=== PATIENT | male | born 1940 | race Caucasian/White ===

== ENCOUNTER 2020-02-22 10:45 | Outpatient (CLI) | payer MEDICARE, SELFPAY ==
[2020-02-22 10:59] VITALS: BMI 43.0
[2020-02-22 11:30] LABS: Hematocrit 40.8 % (42.0-52.0); Hemoglobin 13.2 g/dL (14.1-18.0)
[2020-02-22 11:36] LABS: Potassium 4.2 mmoL/L (3.5-5.1)
[2020-02-22 11:39] LABS: Creatinine Clearance Estimated 23 mL/min (50-200); Estimated Glomerular Filt Rate 26 ml/min (>60); GFR (African American) 32 ML/MIN (>60); Iron 48 ug/dL (49-181)
[2020-02-22 11:48] LABS: Total Iron Binding Capacity 224 ug/dL (261-462)
[2020-02-22 12:17] LABS: Ferritin 32.2 ng/ml (17.9-464)
--- NOTE | 2020-02-22 14:29 | PC.NURSE ---
1120-DICKSON FROM LAB PRESENT TO DRAW H/H, CREA, K+, FERRITIN, IRON AND TIBC, AND IRON SAT. PT WILL RECEIVED PROCRIT IF HGB <10.
--- NOTE | 2020-02-22 14:39 | PC.NURSE ---
1150- HGB 13.2. NO PROCRIT INDICATED. PT SCHEDULED TO RETURN IN 1 MONTH FOR LABS AND PROCRIT IF NEEDED.
== END 2020-02-22 12:00 | disposition home or self-care (01) ==
LOC: INF 10:50
PROVIDERS: PCP Emergency Medicine; Visit Provider Student in an Organized Health Care Education/Training Program
DX: N18.4 Chronic kidney disease, stage 4 (severe) (principal); D63.1 Anemia in chronic kidney disease
CPT/HCPCS: 36415; 82565; 82728; 83540; 83550; 84132; 85014; 85018

== ENCOUNTER 2020-04-09 11:21 | Outpatient (CLI) | payer MEDICARE, SELFPAY ==
[2020-04-09 11:22] VITALS: BMI 35.2
[2020-04-09 11:53] LABS: Creatinine Clearance Estimated 37 mL/min (50-200); Estimated Glomerular Filt Rate 27 ml/min (>60); GFR (African American) 33 ML/MIN (>60); Iron 62 ug/dL (49-181)
[2020-04-09 12:02] LABS: Total Iron Binding Capacity 260 ug/dL (261-462)
[2020-04-09 12:19] LABS: Hematocrit 39.5 % (42.0-52.0); Hemoglobin 12.3 g/dL (14.1-18.0)
[2020-04-09 12:31] LABS: Ferritin 36.5 ng/ml (17.9-464)
--- NOTE | 2020-04-09 12:44 | PC.NURSE ---
BLOOD DRAWN BY DICKSON FROM LAB. HGB 12.3 THEREFORE NO PROCRIT WAS GIVEN AND PT SCHEDULED TO RETURN IN 1 MONTH TO RECHECK LABS AND GIVE PROCRIT IF INDICATED.
== END 2020-04-09 12:25 | disposition home or self-care (01) ==
LOC: INF 11:21
PROVIDERS: Visit Provider Internal Medicine Nephrology
DX: N18.4 Chronic kidney disease, stage 4 (severe) (principal); D63.1 Anemia in chronic kidney disease
CPT/HCPCS: 36415; 82565; 82728; 83540; 83550; 84132; 85014; 85018

== ENCOUNTER 2020-05-07 11:15 | Outpatient (CLI) | payer MEDICARE, SELFPAY ==
[2020-05-07 11:18] VITALS: BMI 35.2
[2020-05-07 11:32] LABS: Hematocrit 39.1 % (42.0-52.0); Hemoglobin 12.6 g/dL (14.1-18.0)
[2020-05-07 11:46] LABS: Creatinine Clearance Estimated 43 mL/min (50-200); Estimated Glomerular Filt Rate 32 ml/min (>60); GFR (African American) 39 ML/MIN (>60); Potassium 4.1 mmoL/L (3.5-5.1)
[2020-05-07 11:49] LABS: Iron 45 ug/dL (49-181)
[2020-05-07 11:58] LABS: Total Iron Binding Capacity 246 ug/dL (261-462)
--- NOTE | 2020-05-07 12:00 | PC.NURSE ---
1200-pt here to have labs checked for possible procrit injection; hgb 12.6 so pt doesn't need to get injection; tried to notify md office for further orders; will call pt when speak to md office.
[2020-05-07 12:26] LABS: Ferritin 44.4 ng/ml (17.9-464)
== END 2020-05-07 12:00 | disposition home or self-care (01) ==
LOC: INF 11:15
PROVIDERS: Visit Provider Internal Medicine Nephrology
DX: C64.9 Malignant neoplasm of unspecified kidney, except renal pelvis (principal); N18.4 Chronic kidney disease, stage 4 (severe); D63.1 Anemia in chronic kidney disease
CPT/HCPCS: 82565; 82728; 83540; 83550; 84132; 85014; 85018